=== PATIENT | female | born 1945 | race Caucasian/White ===

== ENCOUNTER 2017-08-26 02:42 | Observation (INO) ==
[2017-08-26 03:16] LABS: Basophils % 0.4 % (0.1-2.0); Eosinophils # 0.1 K/mm3 (0.0-0.4); Hematocrit 40.1 % (37.0-47.0); Hemoglobin 13.6 g/dL (12.2-16.2); Lymphocytes # 2.6 K/mm3 (0.7-4.5); Lymphocytes % 26.5 K/mm3 (10-50); Mean Corpuscular HGB Conc 33.8 g/dL (31.8-35.4); Mean Corpuscular Hemoglobin 32.7 pg (27.0-31.2); Mean Corpuscular Volume 96.8 fl (81-99); Mean Platelet Volume 9.4 fl (7.4-10.4); Monocytes # 0.6 K/mm3 (0.1-1.0); Monocytes % 6.5 % (1.7-9.3); Neutrophils # 6.4 K/mm3 (1.8-7.8); Neutrophils % 65.6 % (37.0-80.0); Platelet Count 290 K/mm3 (142-424); Red Blood Count 4.15 M/mm3 (4.20-5.40); Red Cell Distribution Width 14.1 % (11.5-17.5); White Blood Count 9.8 K/mm3 (4.8-10.8)
[2017-08-26 03:28] LABS: INR 0.94 (0.9-1.1); Prothrombin Time 10.1 seconds (9.4-11.8)
[2017-08-26 03:45] LABS: Albumin/Globulin Ratio 0.7 (1.1-1.8); Anion Gap 18.9 mEq/L (5-15); Bilirubin,Total 0.1 mg/dL (0.2-1.0); Calcium 8.9 mg/dL (8.5-10.1); Globulin 4.4 gm/dl (1.3-3.2); Potassium 3.9 mmoL/L (3.5-5.1); Total Protein,Serum 7.4 gm/dL (6.4-8.2)
[2017-08-26 04:03] LABS: Erythrocyte Sedimentation Rate 99 mm/hr (0-30)
--- NOTE | 2017-08-26 04:04 | Emergency Department Note ---
ED Disposition Clinical Impression: Arterial insufficiency of lower extremity, Renal insufficiency, Tobacco use disorder Disposition: Admitted As Inpatient Condition on Discharge: Serious - Critical Care Critical Care Time: No ( ) Attestation: On 08/26/17, the high probability of a clinically significant, sudden or life threatening deterioration of the following system(s) required my full and direct attention, intervention and personal management. The time I documented below is in addition to time spent performing reported procedures but includes the following listed in this critical care notation. Medical Decision Making - Medical Records Medical records reviewed: Yes: I reviewed the patient's medical records. - Julien Inquiry Pt receiving controlled substance: No Vital Signs: 08/26/17 02:44 08/26/17 04:43 Temperature 98.2 F Temperature Source Oral Pulse Rate [Right Radial] 75 72 Respiratory Rate 16 16 Blood Pressure [Right Arm] 138/58 146/63 Blood Pressure Mean [Right Arm] 84 90 Blood Pressure Source [Right Arm] Automatic Cuff Automatic Cuff Blood Pressure Position [Right Arm] Sitting Supine 02 Sat by Pulse Oximetry 97 95 Oxygen Delivery Method Room Air Room Air - Lab Data Lab results reviewed: Yes: I reviewed the patient's lab results. Lab Results 08/26/17 03:10: WBC 9.8, RBC 4.15 L, Hgb 13.6, Hct 40.1, MCV 96.8, MCH 32.7 H, MCHC 33.8, RDW 14.1, Plt Count 290, MPV 9.4, Neut % (Auto) 65.6, Lymph % (Auto) 26.5, [place] % (Auto) 6.5, Eos % (Auto) 1.0, Baso % (Auto) 0.4, Neut # (Auto) 6.4 , Lymph # (Auto) 2.6, [place] # (Auto) 0.6, Eos # (Auto) 0.1, Baso # (Auto) 0.0, ESR 99 H 08/26/17 03:10: PT 10.1, INR 0.94 08/26/17 03:10: Sodium 135 L, Potassium 3.9, Chloride 100, Carbon Dioxide 20 L, Anion Gap 18.9 H, BUN 57 H, Creatinine 2.53 H, Estimated Creat Clear 17, Estimated GFR 19 L*, Est GFR ( Amer) 22 L, Glucose 269 H, Calcium 8.9, Total Bilirubin 0.1 L, AST 19, ALT 24, Alkaline Phosphatase 158 H, Total Creatine Kinase 185, CK-MB (CK-2) 4.2 H, CK-MB (CK-2) Rel Index 2.3, Troponin I 0.10 H, Total Protein 7.4, Albumin 3.0 L, Globulin 4.4 H, Albumin/Globulin Ratio 0.7 L 08/26/17 03:10: B-Natriuretic Peptide 495 H Result diagrams: 08/26/17 03:10 08/26/17 03:10 Orders (Tests/Meds): ED MEDICATIONS Discontinued Medications Generic Name Dose Route Start Last Admin Trade Name Freq PRN Reason Stop Dose Admin Butorphanol Tartrate 1 mg 08/26/17 05:26 Stadol 1mg/1ml Vial IV 08/26/17 05:27 ONCE ONE Promethazine HCl 12.5 mg 08/26/17 05:26 Phenergan 25mg/Ml 1ml Vial IV 08/26/17 05:27 ONCE ONE Sodium Chloride 25 ml 08/26/17 05:26 Sod Chlor 0.9% 25ml Bag IV 08/26/17 05:27 ONCE ONE ORDERS Category Date Time Status Chest XR AP view [XR chest AP] Stat Exams 08/26/17 03:28 Ordered XR hip LT 2-3V w/pelvis Stat Exams 08/26/17 03:06 Ordered - Radiology Data #1 Image(s): Chest, Hip Image Reviewed: Yes I reviewed the patient's radiology image Preliminary Findings: No Fracture Seen - ECG Data Tracing #1 I reviewed this ECG and interpreted as documented below: Normal Sinus Rhythm: Yes Ischemic changes: non-specific ST-T wave changes General Adult HPI - General Chief complaint: PAIN Stated complaint: pain Time Seen by Provider: 08/26/17 03:00 Mode of Arrival: EMS Limitations: No Limitations Description of Symptoms (Recalled from ER Triage Doc. by RN): Left thigh/hip pain that started last night. Pt was scheduled for a doppler today but came in due to increased pain - History of Present Illness HPI narrative: progressive pain lt lower ext with hx of tob use/diabetes mellitus/crf - pt reports progressive pain lt lower ext over the last few days - pt was seen at [facility] 2 days ago- pt is hospice pt - Onset (ago): day(s) Location: lower extremity Severity: moderate Quality: aching Consistency: constant - Related Data Home Medications Medication Instructions Recorded Confirmed Aspirin [Aspir 81] 81 mg PO DAILY 08/26/17 08/26/17 Clopidogrel Bisulfate [Plavix 75mg 75 mg PO DAILY 08/26/17 08/26/17 Tab] Hyoscyamine Sulfate 0.125 mg PO NEEDED PRN 08/26/17 08/26/17 Isosorbide Mononitrate [Imdur 30mg 30 mg PO DAILY 08/26/17 08/26/17 ER tablet] Metoprolol Tartrate 100 mg PO BID 08/26/17 08/26/17 Nitroglycerin [Nitrostat 0.4mg SL 0.4 mg SL NEEDED PRN 08/26/17 08/26/17 Tablet] Prochlorperazine Maleate 10 mg PO NEEDED PRN 08/26/17 08/26/17 [Compazine 10mg tablet] Torsemide [Demadex] 20 mg PO DAILY 08/26/17 08/26/17 fentaNYL [Fentanyl] 1 each TD WEEKLY 08/26/17 08/26/17 levoFLOXacin [Levaquin 500mg 500 mg PO Q48H 08/26/17 08/26/17 tab] Allergies Allergy/AdvReac Type Severity Reaction Status Date / Time cefazolin [From [facility]] Allergy Verified 08/26/17 02:54 morphine Allergy Verified 08/26/17 02:54 [facility] History I have reviewed the patient's past medical history: Yes Medical History: Reports:: Diabetes Mellitus Type 2 - Social History Alcohol Intake: never - Psychiatric History Expresses thoughts of harming self/others: None Suicide Plan Description: No Plan ROS Obtained: Yes All systems reviewed & no additional complaints - Constitutional Constitutional: Denies fever(s) - Eyes Eyes: Denies change in vision - ENT Ears, Nose, Mouth, and Throat: Denies sore throat - Cardiovascular Cardiovascular: Denies chest pain at rest - Respiratory Respiratory: No chest congestion, No cough - Gastrointestinal Gastrointestingal: Denies: abdominal pain - Musculoskeletal Musculoskeletal: Denies joint pain, Denies joint swelling, Reports radiating pain into limb - Integumentary/Breasts Skin/Breast: Denies rash - Neurologic Neurologic: Denies seizure-like activity Physical Exam - General General appearance: in no apparent distress - Head Head exam: normocephalic - Eye Eye exam: Present: PERRL, EOMI - ENT ENT exam: Present: mucous membranes dry - Neck Neck exam: Present: trachea midline - Respiratory Respiratory exam: Present: other (dec bs bilat). Absent: respiratory distress - Cardiovascular Cardiovascular exam: Present: regular rate, systolic murmur, +S4 - Abdominal Exam Abdominal exam: Present: soft - Expanded Lower Extremity Exam Left Lower leg exam: Present: other (cold with delayed cap refill with no def pulses with doppler ) - Neurological Exam Neurological exam: Present: alert, oriented X3, CN II-XII intact - Psychiatric Psychiatric exam: Present: normal affect - Skin Skin exam: Absent: other (pallor lt lower ext )
--- NOTE | 2017-08-26 07:45 | Pharmacy Consult Notes ---
[facility] Pharmacy VTE Monitoring - Patient Demographics Admission date: 08/26/17 Report Date: 08/26/17 Time: 07:45 Allergies/Adverse Reactions: Patient Allergies cefazolin [From [facility]] Allergy (Verified 08/26/17 02:54) morphine Allergy (Verified 08/26/17 02:54) Height: 1.63 m Weight: 52.617 kg Patient Problems: Current Active Problems Arterial insufficiency of lower extremity (Acute) Renal insufficiency (Acute) Tobacco use disorder (Acute) - VTE Risk Labs: VTE Related Lab Results Hgb 13.6 g/dL (12.2-16.2) 08/26/17 03:10 Hct 40.1 % (37.0-47.0) 08/26/17 03:10 Plt Count 290 K/mm3 (142-424) 08/26/17 03:10 PT 10.1 seconds (9.4-11.8) 08/26/17 03:10 INR 0.94 (0.9-1.1) 08/26/17 03:10 BUN 57 mg/dL (7-18) H 08/26/17 03:10 Creatinine 2.53 mg/dL (0.55-1.02) H 08/26/17 03:10 Estimated Creat Clear 17 mL/min (0-300) 08/26/17 03:10 Was VTE Risk Assessment Performed: Yes VTE Score: 3 VTE Risk Level: Low Risk - Prophylaxis VTE Prophylaxis Ordered?: Yes Types of VTE Prophylaxis: Pharmacological Pharmacologic Type: Heparin - VTE Diagnosis Confirmed Treatment or plan recommended: Continue Current Treatment
--- NOTE | 2017-08-26 08:27 | Consult Report ---
History of Present Illness Consult date: 08/26/17 Requesting physician: Osmel Chappell Chief complaint: Left leg pain Additional Medical History:: 1. CAD A. History of IL's and 2 stents in past with last stent about 2013, , [place], [place] B. Reportedly has reduced LVEF C. History of cardiac arrest in 04/2017 felt related to urosepsis 2. HTN 3. HLD 4. DM, treated for more than 20 years 5. Chronic kidney disease with transient dialysis from April 2017 until June 2017 at which time patient stopped dialysis. She still has dialysis catheter in place. A. History of urosepsis, approximately 2013 and 2016. 6. Currently in hospice due to cardiac history. 7. Tobacco use continued 8. Family history of heart disease 9. Surgeries including cholecystectomy and left shoulder rotator cuff surgery History of present illness: 72-year-old white female admitted through the emergency department last evening for continued left leg pain now with cold extremity. Onset of left leg pain began Tuesday evening at which time the patient was seen in the [facility] emergency department. Due to the leg being warm patient was given pain medication and sent home and scheduled for Doppler evaluation yesterday. Due to recurrent pain with now cool extremity patient was brought to the emergency room for further evaluation. Doppler evaluation of the left leg revealed no pulses in the leg and patient was admitted for further evaluation. Contact was made with Dr. Burleson overnight regarding possible intervention. Long discussion with the daughter and the patient this a.m. regarding possible need for resuming dialysis if abdominal aortogram with lower extremity runoff and angioplasty with stenting is undertaken. Both the daughter and the patient understand the risks and are willing to proceed. EKG shows sinus rhythm with poor R-wave progression anteriorly. No acute ST elevation is noted. Patient's initial troponin is elevated at 0.1. Her home medications include both aspirin and Plavix along with metoprolol. [facility] History Medical History: Reports:: Atrial Fibrillation, Congestive Heart Failure, Diabetes Mellitus Type 2, Hyperlipidemia, Hypertension, Myocardial Infarction Denies:: Cancer, Diabetes Mellitus Type 1, MRSA Other Medical History: Reports: Anemia Other Surgeries: Yes: Cardiac Catheterization, Coronary Stent Amputation: No Fractures: No - *Social History Educational Level: Completed High School Smoking Status: Current every day smoker Tobacco Type: cigarettes Alcohol Intake: never Occupational Status: retired Housing: apartment Household Members: children - Psychiatric History Expresses thoughts of harming self/others: None Suicide Plan Description: No Plan *Family Hx:: Unable to obtain Meds Home Medications Medication Instructions Recorded Confirmed Type Aspirin [Aspir 81] 81 mg PO DAILY 08/26/17 08/26/17 History Clopidogrel Bisulfate [Plavix 75mg 75 mg PO DAILY 08/26/17 08/26/17 History Tab] Hyoscyamine Sulfate 0.125 mg PO NEEDED PRN 08/26/17 08/26/17 History Isosorbide Mononitrate [Imdur 30mg 30 mg PO DAILY 08/26/17 08/26/17 History ER tablet] Metoprolol Tartrate 100 mg PO BID 08/26/17 08/26/17 History Nitroglycerin [Nitrostat 0.4mg SL 0.4 mg SL NEEDED PRN 08/26/17 08/26/17 History Tablet] Prochlorperazine Maleate 10 mg PO NEEDED PRN 08/26/17 08/26/17 History [Compazine 10mg tablet] Torsemide [Demadex] 20 mg PO DAILY 08/26/17 08/26/17 History fentaNYL [Fentanyl] 1 each TD WEEKLY 08/26/17 08/26/17 History levoFLOXacin [Levaquin 500mg 500 mg PO Q48H 08/26/17 08/26/17 History tab] Allergies Allergy/AdvReac Type Severity Reaction Status Date / Time cefazolin [From [facility]] Allergy Verified 08/26/17 02:54 morphine Allergy Verified 08/26/17 02:54 Review of Systems - *Cardiovascular Denies chest pain, Denies shortness of breath - *Respiratory Denies shortness of breath - *Gastrointestinal Denies abdominal pain - *Musculoskeletal Comments: Left leg pain. - *Neurologic Denies seizure-like activity Exam Vital signs and Labs for Last 24 Hours: Temp Pulse Resp BP Pulse Ox 98.3 F 77 14 168/73 95 08/26/17 06:49 08/26/17 06:49 08/26/17 06:49 08/26/17 06:49 08/26/17 06:38 I & O for Last 24 hours: Intake & Output 08/23/17 08/24/17 08/25/17 08/26/17 11:59 11:59 11:59 11:59 Intake Total 0 / 0 Balance 0 / 0 Weight 116 lb - *Routine Neck Exam Absent: JVD, carotid bruit - *Routine Respiratory Exam Present: CTA bilaterally, diminished air movement - *Routine Cardiovascular Exam Present: RRR, murmur. Absent: gallop, rubs - *Routine Abdominal Exam Present: soft. Absent: tenderness - *Routine Extremities Exam Comments: Left leg is cool and pale in color compared with the leg. Distal pulses not palpable bilaterally. Patient has a strong femoral pulse in the right leg and a very weak femoral pulse of the left. Assessment and Plan (1) Arterial insufficiency of lower extremity Current visit: Yes Status: Acute Category: Medical Code(s): I73.9 - Peripheral vascular disease, unspecified (2) CAD (coronary artery disease) Current visit: Yes Status: Acute Category: Medical Code(s): I25.10 - Atherosclerotic heart disease of [place] coronary artery without angina pectoris (3) CHF (congestive heart failure) Current visit: Yes Status: Acute Category: Medical Code(s): I50.9 - Heart failure, unspecified (4) Hospice care Current visit: Yes Status: Acute Category: Medical Code(s): Z51.5 - Encounter for palliative care (5) History of IL (myocardial infarction) Current visit: Yes Status: Chronic Category: Medical Code(s): I25.2 - Old myocardial infarction (6) Hyperlipidemia Current visit: Yes Status: Chronic Category: Medical Code(s): E78.5 - Hyperlipidemia, unspecified (7) Hypertension Current visit: Yes Status: Chronic Category: Medical Code(s): I10 - Essential (primary) hypertension (8) Renal insufficiency Current visit: Yes Status: Chronic Category: Medical Code(s): N28.9 - Disorder of kidney and ureter, unspecified - Assessment and plan all Dx Assessment and Plan for all problems:: 1. Recommendation for abdominal aortogram with lower extremity runoff was made to the patient and her daughter. Risk of need for possible dialysis was discussed with both the daughter and the patient, and they agreed to proceed. 2. Continue aspirin, Plavix and metoprolol. 3. Further recommendations to follow. 4. Will obtain an echo to evaluate LVEF in patient with known ischemic cardiomyopathy, abnormal EKG and elevated troponin.
--- NOTE | 2017-08-26 08:33 | History & Physical Report ---
*Admission Date: 08/26/17 <Leatha Hardy 08/26/17 08:38> *Chief complaint: left leg pain <Leatha Hardy 08/26/17 08:38> *History of present illness: Ms. Mann is a 72-year-old female with a history of diabetes, ND with stents , hypertension, hyperlipidemia, and history of urosepsis. The patient had urosepsis and coded in April 2017. After this, she had to be placed on dialysis due to renal failure. She only did dialysis from April to June at which time she stopped dialysis. She states she did not want to travel to have it done. She has done well since being off of dialysis. She is currently a hospice patient due to her cardiac issues. She began having left leg pain on Tuesday and went to the [facility] emergency room. She was given pain medication and sent home and scheduled for a Doppler of the left leg. Her pain became worse and she presented to the emergency room at [facility] last night. The Doppler was used and no pulse was found in the left leg. Her leg is cold and slightly cost control specialist in color than the other leg. She was admitted for cardiology consult. Cardiology has seen the patient this a.m. <Leatha Hardy 08/26/17 08:50> [facility] History Medical History: Reports:: Atrial Fibrillation, Congestive Heart Failure, Diabetes Mellitus Type 2, Hyperlipidemia, Hypertension, Myocardial Infarction Denies:: Cancer, Cerebrovascular Accident, Diabetes Mellitus Type 1, MRSA < Leatha Hardy 08/26/17 08:38> Other Medical History: Reports: Anemia <Leatha Hardy 08/26/17 08:38> Laterality Cases: Left: Arthroscopy Shoulder <Leatha Hardy 08/26/17 08:50> Other Surgeries: Yes: Cardiac Catheterization, Coronary Stent <Leatha Hardy 08/26/17 08:38> Amputation: No <Leatha Hardy 08/26/17 08:38> Fractures: No <Leatha Hardy 08/26/17 08:38> Comment: Cholecystectomy <Leatha Hardy 08/26/17 08:38> - *Social History Educational Level: Completed High School <Leatha Hardy 08/26/17 08:38> Smoking Status: Current every day smoker <Leatha Hardy 08/26/17 08:38> Tobacco Type: cigarettes <Leatha Hardy 08/26/17 08:38> Alcohol Intake: never <Leatha Hardy 08/26/17 08:38> Occupational Status: retired <Leatha Hardy 08/26/17 08:38> Housing: apartment <Leatha Hardy 08/26/17 08:38> Household Members: children <Leatha Hardy 08/26/17 08:38> - Psychiatric History Expresses thoughts of harming self/others: None <Leatha Hardy 08/26/17 08: 38> Suicide Plan Description: No Plan <Leatha Hardy 08/26/17 08:38> *Family Hx:: Heart Attack, Hyperlipidemia, Hypertension, Kidney Disease < Leatha Hardy 08/26/17 08:38> Review of Systems - Constitutional Reports weakness, Reports weight loss, Denies chills <Leatha Hardy 08:38> - Eyes Denies blurry vision, Denies double vision <Leatha Hardy 08/26/17 08:38> - ENT Reports nasal congestion, Denies sore throat <Leatha Hardy 08/26/17 08:38> - *Cardiovascular Denies chest pain <Leatha Hardy 08/26/17 08:38> - *Respiratory Denies cough, Denies shortness of breath <Leatha Hardy 08/26/17 08:38> - *Gastrointestinal Denies abdominal pain, Denies loose stools, Denies nausea, Denies vomiting < Leatha Hardy 08/26/17 08:38> - *Genitourinary Denies difficulty urinating, Denies painful urination <Leatha Hardy 08:38> - *Musculoskeletal Denies joint pain, Denies joint swelling <Leatha Hardy 08/26/17 08:38> Comments: left leg pain <Leatha Hardy 08/26/17 08:38> - *Neurologic Reports weakness, Denies dizziness, Denies headache(s), Denies seizure-like activity <Leatha Hardy 08/26/17 08:38> Meds Home Medications Medication Instructions Recorded Confirmed Type Aspirin [Aspir 81] 81 mg PO DAILY 08/26/17 08/26/17 History Clopidogrel Bisulfate [Plavix 75mg 75 mg PO DAILY 08/26/17 08/26/17 History Tab] Hyoscyamine Sulfate 0.125 mg PO NEEDED PRN 08/26/17 08/26/17 History Isosorbide Mononitrate [Imdur 30mg 30 mg PO DAILY 08/26/17 08/26/17 History ER tablet] Metoprolol Tartrate 100 mg PO BID 08/26/17 08/26/17 History Nitroglycerin [Nitrostat 0.4mg SL 0.4 mg SL NEEDED PRN 08/26/17 08/26/17 History Tablet] Prochlorperazine Maleate 10 mg PO NEEDED PRN 08/26/17 08/26/17 History [Compazine 10mg tablet] Torsemide [Demadex] 20 mg PO DAILY 08/26/17 08/26/17 History fentaNYL [Fentanyl] 1 each TD WEEKLY 08/26/17 08/26/17 History levoFLOXacin [Levaquin 500mg 500 mg PO Q48H 08/26/17 08/26/17 History tab] <Osmel Chappell - 08/26/17 08:59> Allergies Allergy/AdvReac Type Severity Reaction Status Date / Time cefazolin [From [facility]] Allergy Verified 08/26/17 02:54 morphine Allergy Verified 08/26/17 02:54 <Osmel Chappell - 08/26/17 08:59> Exam Vital signs and Labs for Last 24 Hours: Temp Pulse Resp BP Pulse Ox 98.3 F 77 14 168/73 95 08/26/17 06:49 08/26/17 06:49 08/26/17 06:49 08/26/17 06:49 08/26/17 06:38 <Osmel Chappell - 08/26/17 08:59> Temp Pulse Resp BP Pulse Ox 98.3 F 77 14 168/73 95 08/26/17 06:49 08/26/17 06:49 08/26/17 06:49 08/26/17 06:49 08/26/17 06:38 <Leatha Hardy - 08/26/17 08:38> I & O for Last 24 hours: Intake & Output 08/23/17 08/24/17 08/25/17 08/26/17 11:59 11:59 11:59 11:59 Intake Total 0 / 0 Balance 0 / 0 Weight 116 lb <Osmel Chappell - 08/26/17 08:59> Intake & Output 08/23/17 08/24/17 08/25/17 08/26/17 11:59 11:59 11:59 11:59 Intake Total 0 / 0 Balance 0 / 0 Weight 116 lb <Leatha Hardy 08/26/17 08:38> - Constitutional no acute distress <Leatha Hardy 08/26/17 08:38> - *Routine HEENT Exam Head: Present: normocephalic, atraumatic <Leatha Hardy 08/26/17 08:38> Eye: Present: EOMI, PERRL <Letaha Hardy 08/26/17 08:38> ENT: Present: mucous membranes dry <Leatha Hardy 08/26/17 08:38> - *Routine Neck Exam Present: supple, full ROM <Leatha Hardy 08/26/17 08:38> - *Routine Respiratory Exam Present: decreased breath sounds, CTA bilaterally <Leatha Hardy 08/26/17 08 :38> - *Routine Cardiovascular Exam Present: RRR <Leatha Hardy 08/26/17 08:38> - *Routine Abdominal Exam Present: soft, normoactive bowel sounds. Absent: tenderness <Leatha Hardy 08/26/17 08:38> - *Routine Extremities Exam Present: edema (trace bilaterally) <Leatha Hardy 08/26/17 08:38> Comments: left leg with pallor and it is tender and cold to the touch, no pulse palpable, right leg with normal color, warm, pulse is found <Leatha Hardy 08/26/17 08:38> H&P: Result - Impressions Hip xray - Moderate osteoarthritic change left hip along with underlying osteopenia and moderate degenerative disc disease lower lumbar spine CXR - Multiple and likely healed fractures right ribs, if there is persistent pain additional right rib films may be helpful for additional evaluation. <Leatha Hardy 08/26/17 08:38> Assessment and Plan (1) Arterial insufficiency of lower extremity Current visit: Yes Status: Acute Category: Medical Code(s): I73.9 - Peripheral vascular disease, unspecified (2) Hypertension Current visit: Yes Status: Chronic Category: Medical Code(s): I10 - Essential (primary) hypertension (3) Hyperlipidemia Current visit: Yes Status: Chronic Category: Medical Code(s): E78.5 - Hyperlipidemia, unspecified (4) Type 2 diabetes mellitus Current visit: Yes Status: Chronic Category: Medical Code(s): E11.9 - Type 2 diabetes mellitus without complications (5) Renal insufficiency Current visit: Yes Status: Chronic Category: Medical Code(s): N28.9 - Disorder of kidney and ureter, unspecified (6) Tobacco use disorder Current visit: Yes Status: Chronic Category: Medical Code(s): F17.200 - Nicotine dependence, unspecified, uncomplicated (7) History of ND (myocardial infarction) Current visit: Yes Status: Chronic Category: Medical Code(s): I25.2 - Old myocardial infarction (8) CAD (coronary artery disease) Current visit: Yes Status: Acute Category: Medical Code(s): I25.10 - Atherosclerotic heart disease of [place] coronary artery without angina pectoris (9) CHF (congestive heart failure) Current visit: Yes Status: Acute Category: Medical Code(s): I50.9 - Heart failure, unspecified (10) Hospice care Current visit: Yes Status: Acute Category: Medical Code(s): Z51.5 - Encounter for palliative care <Osmel Chappell - 08/26/17 08:59> (1) Arterial insufficiency of lower extremity Current visit: Yes Status: Acute Category: Medical Code(s): I73.9 - Peripheral vascular disease, unspecified (2) Hypertension Current visit: Yes Status: Chronic Category: Medical Code(s): I10 - Essential (primary) hypertension (3) Hyperlipidemia Current visit: Yes Status: Chronic Category: Medical Code(s): E78.5 - Hyperlipidemia, unspecified (4) Type 2 diabetes mellitus Current visit: Yes Status: Chronic Category: Medical Code(s): E11.9 - Type 2 diabetes mellitus without complications (5) Renal insufficiency Current visit: Yes Status: Chronic Category: Medical Code(s): N28.9 - Disorder of kidney and ureter, unspecified (6) Tobacco use disorder Current visit: Yes Status: Chronic Category: Medical Code(s): F17.200 - Nicotine dependence, unspecified, uncomplicated (7) History of ND (myocardial infarction) Current visit: Yes Status: Chronic Category: Medical Code(s): I25.2 - Old myocardial infarction <Leatha Hardy - 08/26/17 08:45> - Assessment and plan all Dx Assessment and Plan for all problems:: Saw patient, she is a Hospice cardiac patient with what appears to be threatening left leg limb ischemia. She was on dialysis but has stopped treatment. Cardiology to attempt percutaneous based treatment of left leg. Plan of care discussed with patient and her daughter. <Osmel Chappell - 08/26/17 08:59> Cardiology will do an abdominal aortogram with lower extremity runoff and possible angioplasty with stenting. Patient is aware she may have to go back on dialysis. <Leatha Hardy - 08/26/17 08:50>
[2017-08-26 13:06] LABS: Microscopic, Urine URINE MICROSCOPIC (MICROSCOPIC)
--- NOTE | 2017-08-26 13:25 | Pharmacy Consult Notes ---
[facility] Pharmacy Heparin Dosing - Demographic Data Admission date:: 08/26/17 Date: 08/26/17 Time: 13:22 Allergies/Adverse Reactions: Allergies Allergy/AdvReac Type Severity Reaction Status Date / Time cefazolin [From Ancef] Allergy Verified 08/26/17 02:54 morphine Allergy Verified 08/26/17 02:54 Height: 1.63 m Weight: 52.6 kg - Indication Medication therapy:: Heparin Patient Problems: Current Active Problems (This Medical Record has been edited. Action required.) Arterial insufficiency of lower extremity (Acute) Renal insufficiency (Chronic) Tobacco use disorder (Chronic) Hypertension (Chronic) Hyperlipidemia (Chronic) Type 2 diabetes mellitus (Chronic) History of IA (myocardial infarction) (Chronic) CAD (coronary artery disease) (Acute) CHF (congestive heart failure) (Acute) Hospice care (Acute) CVA?: No Bleeding problem?: No Kidney disease?: Yes IA?: No Desired PTT range:: 60-80 seconds - Labs Anticoagulation Lab Results:: 46.4 - Monitoring Dose Monitor 1 Date: 08/26/17 Time: 13:25 PTT Result:: 46.4 Infusion Rate:: 3000 UNIT BOLUS GIVEN IN ER 17 ML/HR (850 UNITS/HR) Comment:: [id number] HEPARIN DRIP STOPPED IN CABIN SUPERVISOR - Core Measures Is INR > or = 2 at discharge?: No Most Recent Labs:: Laboratory Results - last 24 hr 08/26/17 08:35: APTT 46.4 H If INR was < than 2.0 why was therapy stopped?: HEPARIN DRIP STOPPED IN CABIN SUPERVISOR Were Heparin and Warfarin started on the same day?: No If not, why?: NOT INDICATED FOR PATIENT
[2017-08-26 13:36] LABS: Appearance,Urine SL CLOUDY (Clear); Bilirubin,Urine Negative (Negative); Blood, Urine 1+ (Negative); Color,Urine YELLOW (Yellow); Glucose,Urine (UA) 1+ (Negative); Ketones,Urine Negative (Negative); Leukocyte Esterase,Urine Negative (Negative); Protein,Urine 2+ (Negative); Urobilinogen,Urine 0.2 EU/dl (0.2)
[2017-08-26 13:54] LABS: WBC,Urine Occasional #/hpf (0-3)
[2017-08-26 13:55] LABS: Amorphous Sediment,Urine 2+ /lpf; Bacteria,Urine 1+ /lpf
--- NOTE | 2017-08-27 08:19 | Progress Note ---
<Leatha Hardy - Last Filed: 08/27/17 08:16> Internal Medicine - PN: Subj *Date: 08/27/17 *Time: 08:16 Interval history: The patient is lethargic this am. When she does wake up she states that her leg pain is better but still hurts. Denies any other pain. Exam Vital signs and Labs for Last 24 Hours: Temp Pulse Resp BP Pulse Ox 97.6 F 96 H 18 160/74 96 08/27/17 08:03 08/27/17 08:03 08/27/17 08:03 08/27/17 08:03 08/27/17 08:03 Laboratory Results - last 24 hr 08/26/17 08:35: APTT 46.4 H 08/26/17 11:20: Activated Clotting Time 267 H* 08/26/17 12:00: Activated Clotting Time 144 H D 08/26/17 12:20: Urine Color Yellow, Urine Appearance Sl cloudy, Urine pH 6.0, Ur Specific Ten Sleep 1.020, Urine Protein 2+, Urine Glucose (UA) 1+, Urine Ketones Negative, Urine Blood 1+, Urine Nitrate Negative, Urine Bilirubin Negative, Urine Urobilinogen 0.2, Ur Leukocyte Esterase Negative, Urine RBC None , Urine WBC Occasional, Ur Squamous Epith Cells 10-20, Amorphous Sediment 2+, Urine Bacteria 1+ 08/26/17 16:44: POC Glucose 197 08/26/17 22:12: POC Glucose 243 08/27/17 06:39: POC Glucose 312 I & O for Last 24 hours: Intake & Output 08/24/17 08/25/17 08/26/17 08/27/17 11:59 11:59 11:59 11:59 Intake Total 0 / 0 1479 / 1479 Output Total 2600 / 2600 Balance 0 / 0 -1121 / -1121 Weight 116 lb 115 lb 15.41 oz Radiology Reports for the Last 24 Hours: Aortogram 1. 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 Successful revascularization of the left common femoral artery and left superficial femoral artery 100% occlusion reduced to 0% with 2 bare-metal self- expanding stents - Constitutional Comments: lethargic - *Routine Respiratory Exam Present: rhonchi - *Routine Cardiovascular Exam Present: RRR - *Routine Abdominal Exam Present: soft, normoactive bowel sounds. Absent: tenderness - *Routine Extremities Exam Absent: edema Comments: LLE is now warm to the touch and a pretibial pulse is palpable Assessment and Plan (1) Arterial insufficiency of lower extremity Current visit: Yes Status: Acute Category: Medical Code(s): I73.9 - Peripheral vascular disease, unspecified (2) CAD (coronary artery disease) Current visit: Yes Status: Acute Category: Medical Code(s): I25.10 - Atherosclerotic heart disease of [place] coronary artery without angina pectoris (3) CHF (congestive heart failure) Current visit: Yes Status: Acute Category: Medical Code(s): I50.9 - Heart failure, unspecified (4) Hospice care Current visit: Yes Status: Acute Category: Medical Code(s): Z51.5 - Encounter for palliative care (5) History of MD (myocardial infarction) Current visit: Yes Status: Chronic Category: Medical Code(s): I25.2 - Old myocardial infarction (6) Hyperlipidemia Current visit: Yes Status: Chronic Category: Medical Code(s): E78.5 - Hyperlipidemia, unspecified (7) Hypertension Current visit: Yes Status: Chronic Category: Medical Code(s): I10 - Essential (primary) hypertension (8) Renal insufficiency Current visit: Yes Status: Chronic Category: Medical Code(s): N28.9 - Disorder of kidney and ureter, unspecified - Assessment and plan all Dx Assessment and Plan for all problems:: Cardiology procedure reviewed. Patient is to remain on aspirin and Plavix. We will get labs this morning to check renal function. <Osmel Chappell - Last Filed: 08/27/17 10:43> Internal Medicine - PN: Subj *Date: 08/27/17 *Time: 10:41 Exam Vital signs and Labs for Last 24 Hours: Temp Pulse Resp BP Pulse Ox 97.6 F 96 H 18 160/74 96 08/27/17 08:03 08/27/17 08:03 08/27/17 08:03 08/27/17 08:03 08/27/17 08:03 Laboratory Results - last 24 hr 08/26/17 11:20: Activated Clotting Time 267 H* 08/26/17 12:00: Activated Clotting Time 144 H D 08/26/17 12:20: Urine Color Yellow, Urine Appearance Sl cloudy, Urine pH 6.0, Ur Specific [place] 1.020, Urine Protein 2+, Urine Glucose (UA) 1+, Urine Ketones Negative, Urine Blood 1+, Urine Nitrate Negative, Urine Bilirubin Negative, Urine Urobilinogen 0.2, Ur Leukocyte Esterase Negative, Urine RBC None , Urine WBC Occasional, Ur Squamous Epith Cells 10-20, Amorphous Sediment 2+, Urine Bacteria 1+ 08/26/17 16:44: POC Glucose 197 08/26/17 22:12: POC Glucose 243 08/27/17 06:39: POC Glucose 312 08/27/17 08:51: WBC 9.1, RBC 3.66 L, Hgb 11.8 L, Hct 34.9 L, MCV 95.4, MCH 32.1 H, MCHC 33.7, RDW 14.1, Plt Count 190 D, MPV 10.0, Neut % (Auto) 70.0, Lymph % (Auto) 21.2, Bond % (Auto) 6.2, Eos % (Auto) 2.2, Baso % (Auto) 0.4, Neut # ( Auto) 6.4, Lymph # (Auto) 1.9, Bond # (Auto) 0.6, Eos # (Auto) 0.2, Baso # (Auto ) 0.0 08/27/17 08:51: Sodium 144, Potassium 3.0 L, Chloride 113 H, Carbon Dioxide 19 L , Anion Gap 15.0, BUN 42 H D, Creatinine 1.78 H D, Estimated Creat Clear 23, Estimated GFR 28 L, Est GFR ( Amer) 34 L D, Glucose 175 H, Calcium 8.8, Total Bilirubin 0.1 L, AST 17, ALT 20, Alkaline Phosphatase 137 H, Total Protein 5.8 L, Albumin 2.2 L D, Globulin 3.6 H, Albumin/Globulin Ratio 0.6 L I & O for Last 24 hours: Intake & Output 08/24/17 08/25/17 08/26/17 08/27/17 11:59 11:59 11:59 11:59 Intake Total 0 / 0 1479 / 1479 Output Total 2600 / 2600 Balance 0 / 0 -1121 / -1121 Weight 116 lb 115 lb 15.41 oz Assessment and Plan (1) Arterial insufficiency of lower extremity Current visit: Yes Status: Acute Category: Medical Code(s): I73.9 - Peripheral vascular disease, unspecified (2) CAD (coronary artery disease) Current visit: Yes Status: Acute Category: Medical Code(s): I25.10 - Atherosclerotic heart disease of [place] coronary artery without angina pectoris (3) CHF (congestive heart failure) Current visit: Yes Status: Acute Category: Medical Code(s): I50.9 - Heart failure, unspecified (4) Hospice care Current visit: Yes Status: Acute Category: Medical Code(s): Z51.5 - Encounter for palliative care (5) History of MD (myocardial infarction) Current visit: Yes Status: Chronic Category: Medical Code(s): I25.2 - Old myocardial infarction (6) Hyperlipidemia Current visit: Yes Status: Chronic Category: Medical Code(s): E78.5 - Hyperlipidemia, unspecified (7) Hypertension Current visit: Yes Status: Chronic Category: Medical Code(s): I10 - Essential (primary) hypertension (8) Renal insufficiency Current visit: Yes Status: Chronic Category: Medical Code(s): N28.9 - Disorder of kidney and ureter, unspecified (9) Hypokalemia Current visit: Yes Status: Acute Category: Medical Code(s): E87.6 - Hypokalemia - Assessment and plan all Dx Assessment and Plan for all problems:: Saw patient this morning, she is alert and conversant now. Labs reviewed, will replace potassium now, remove Haney catheter and ambulate.
[2017-08-27 09:09] LABS: Basophils % 0.4 % (0.1-2.0); Eosinophils # 0.2 K/mm3 (0.0-0.4); Eosinophils % 2.2 % (0.1-12.0); Hematocrit 34.9 % (37.0-47.0); Hemoglobin 11.8 g/dL (12.2-16.2); Lymphocytes # 1.9 K/mm3 (0.7-4.5); Lymphocytes % 21.2 K/mm3 (10-50); Mean Corpuscular HGB Conc 33.7 g/dL (31.8-35.4); Mean Corpuscular Hemoglobin 32.1 pg (27.0-31.2); Mean Corpuscular Volume 95.4 fl (81-99); Monocytes # 0.6 K/mm3 (0.1-1.0); Monocytes % 6.2 % (1.7-9.3); Neutrophils # 6.4 K/mm3 (1.8-7.8); Platelet Count 190 K/mm3 (142-424); Red Blood Count 3.66 M/mm3 (4.20-5.40); Red Cell Distribution Width 14.1 % (11.5-17.5); White Blood Count 9.1 K/mm3 (4.8-10.8)
[2017-08-27 09:25] LABS: Albumin Level 2.2 gm/dL (3.4-5.0); Albumin/Globulin Ratio 0.6 (1.1-1.8); Bilirubin,Total 0.1 mg/dL (0.2-1.0); Calcium 8.8 mg/dL (8.5-10.1); Globulin 3.6 gm/dl (1.3-3.2); Total Protein,Serum 5.8 gm/dL (6.4-8.2)
[2017-08-28 07:16] LABS: Basophils % 0.3 % (0.1-2.0); Eosinophils # 0.2 K/mm3 (0.0-0.4); Eosinophils % 2.3 % (0.1-12.0); Hematocrit 33.1 % (37.0-47.0); Hemoglobin 11.3 g/dL (12.2-16.2); Lymphocytes % 21.2 K/mm3 (10-50); Mean Corpuscular HGB Conc 34.1 g/dL (31.8-35.4); Mean Corpuscular Volume 96.9 fl (81-99); Mean Platelet Volume 9.8 fl (7.4-10.4); Monocytes # 0.5 K/mm3 (0.1-1.0); Monocytes % 5.7 % (1.7-9.3); Neutrophils # 6.5 K/mm3 (1.8-7.8); Neutrophils % 70.6 % (37.0-80.0); Platelet Count 174 K/mm3 (142-424); Red Blood Count 3.42 M/mm3 (4.20-5.40); Red Cell Distribution Width 14.2 % (11.5-17.5); White Blood Count 9.3 K/mm3 (4.8-10.8)
[2017-08-28 07:25] LABS: Anion Gap 15.8 mEq/L (5-15); Potassium 3.8 mmoL/L (3.5-5.1)
--- NOTE | 2017-08-28 08:05 | Cardiology Report ---
PROCEDURE: 2-D M-mode and color Doppler study INDICATIONS FOR THE TEST: Chest pain COPD Heart Murmur Tobacco Smoking+ Palpitations Fatigue Syncope Edema Hypertension+Diabetes Mellitus+ Rheumatic Fever SOB RIVERA Obesity Hyperlipidemia+ Family History HD Additional History NE, STENTS, CARDIAC ARREST 2017, AFIB PATIENT INFORMATION HEIGHT: 64 WEIGHT:116 GENDER: Female B/P:168/73 2-D/M-MODE INTERPRETATION: 2-D MEASUREMENTS OBSERVED VALUES IN CMS Right Ventricular Dimension (RVDd) 1.4 Interventricular Septum (Thickness)(IVsd) 1.8 Left Ventricular Internal Dimensions(LVIDd) 3.9 Left Ventricular Posterior Wall (Thickness)(LVPWd) 1.5 Aortic Root 3.4 Aortic Cusp Separation 1.9 Left Atrial Dimensions (LAD) 3.8 2D 1. Left atrium is mildly enlarged, left ventricle is normal size, there is moderate concentric left ventricular hypertrophy, visually estimated ejection fraction approximately 45-50%, there appears to be moderate hypokinesis involving the apex. 2. The right atrium and right ventricle are normal size and contractility. 3. The aortic valve is thickened and calcified leaflet continue to display mobility. 4. The mitral and tricuspid valve leaflets are minimally thickened. 5. The pulmonic valve is poorly visualized. 6. No significant pericardial effusion noted. DOPPLER INTERROGATION: Doppler interrogation of the aortic, mitral and tricuspid valvular presence of trace aortic, mild mitral and tricuspid regurgitation, tricuspid regurgitant jet velocity insufficient for calculation of the right ventricular systolic pressure, diastolic parameters are inconclusive. CONCLUSION: 1. Mildly enlarged left atrium, normal left ventricular size, moderate concentric left ventricular hypertrophy, visually estimated ejection fraction 45-50% with segmental wall motion abnormality described above. 2. Trace aortic, mild mitral and tricuspid regurgitation 3. No significant pericardial effusion noted.
--- NOTE | 2017-08-28 09:39 | Progress Note ---
Internal Medicine - PN: Subj *Date: 08/28/17 *Time: 09:36 Interval history: Patient did well yesterday, she was able to ambulate in the [place] with a walker and is tolerating diet. Exam Vital signs and Labs for Last 24 Hours: Temp Pulse Resp BP Pulse Ox 98.7 F 102 H 18 132/73 98 08/28/17 08:00 08/28/17 08:00 08/28/17 08:00 08/28/17 08:00 08/28/17 08:00 Laboratory Results - last 24 hr 08/27/17 11:16: POC Glucose 265 08/27/17 16:20: POC Glucose 303 08/27/17 21:41: POC Glucose 212 08/28/17 06:13: POC Glucose 213 08/28/17 06:30: WBC 9.3, RBC 3.42 L, Hgb 11.3 L, Hct 33.1 L, MCV 96.9, MCH 33.0 H, MCHC 34.1, RDW 14.2, Plt Count 174, MPV 9.8, Neut % (Auto) 70.6, Lymph % ( Auto) 21.2, Lucas % (Auto) 5.7, Eos % (Auto) 2.3, Baso % (Auto) 0.3, Neut # (Auto ) 6.5, Lymph # (Auto) 2.0, Lucas # (Auto) 0.5, Eos # (Auto) 0.2, Baso # (Auto) 0.0 08/28/17 06:30: Sodium 143, Potassium 3.8 D, Chloride 113 H, Carbon Dioxide 18 L, Anion Gap 15.8 H, BUN 38 H, Creatinine 1.57 H, Estimated Creat Clear 26, Estimated GFR 32 L, Est GFR ( Amer) 39 L, Glucose 207 H Vital Signs Temp Pulse Resp BP Pulse Ox 08/28/17 08:00 98.7 F 102 H 18 132/73 98 08/28/17 04:00 98.4 F 102 H 19 137/72 98 08/28/17 03:33 91 L 08/28/17 01:06 98.6 F 94 H 20 156/80 08/27/17 20:00 98.6 F 63 20 156/74 98 08/27/17 15:51 98.1 F 99 H 18 125/77 98 08/27/17 11:55 97.7 F 104 H 18 165/74 97 Intake and Output 08/27/17 08/28/17 08/28/17 19:59 03:59 11:59 Intake Total 1042 / 1042 240 / 240 120 / 120 Balance 1042 / 1042 240 / 240 120 / 120 Intake: Intake, Oral Amount 240 / 240 240 / 240 120 / 120 Intake, Total IV Amount 802 / 802 0.9 % Sodium Chloride 1,000 ml 702 / 702 @ 25 mls/hr IV .Q25H NEFTALI Rx#: [id number] KCl 20mEq/100ml 100 ml @ 50 mls 100 / 100 /hr IV ONCE ONE Rx#:[id number] Other: Number of Voids 2 1 1 Number of Unmeasured Voids 1 1 Number of Urine Attends/Diapers 1 1 Number of Bowel Movements 0 0 I & O for Last 24 hours: Intake & Output 08/25/17 08/26/17 08/27/17 08/28/17 11:59 11:59 11:59 11:59 Intake Total 0 / 0 1479 / 1479 1402 / 1402 Output Total 3000 / 3000 Balance 0 / 0 -1521 / -1521 1402 / 1402 Weight 116 lb 115 lb 15.41 oz - Constitutional no acute distress - *Routine HEENT Exam ENT: Present: mucous membranes moist - *Routine Extremities Exam Present: pulses intact. Absent: cyanosis, clubbing, edema Assessment and Plan (1) Arterial insufficiency of lower extremity Current visit: Yes Status: Acute Category: Medical Code(s): I73.9 - Peripheral vascular disease, unspecified (2) CAD (coronary artery disease) Current visit: Yes Status: Acute Category: Medical Code(s): I25.10 - Atherosclerotic heart disease of [place] coronary artery without angina pectoris (3) CHF (congestive heart failure) Current visit: Yes Status: Acute Category: Medical Code(s): I50.9 - Heart failure, unspecified (4) Hospice care Current visit: Yes Status: Acute Category: Medical Code(s): Z51.5 - Encounter for palliative care (5) History of [place] (myocardial infarction) Current visit: Yes Status: Chronic Category: Medical Code(s): I25.2 - Old myocardial infarction (6) Hyperlipidemia Current visit: Yes Status: Chronic Category: Medical Code(s): E78.5 - Hyperlipidemia, unspecified (7) Hypertension Current visit: Yes Status: Chronic Category: Medical Code(s): I10 - Essential (primary) hypertension (8) Renal insufficiency Current visit: Yes Status: Chronic Category: Medical Code(s): N28.9 - Disorder of kidney and ureter, unspecified (9) Hypokalemia Current visit: Yes Status: Resolved Category: Medical Code(s): E87.6 - Hypokalemia - Assessment and plan all Dx Assessment and Plan for all problems:: Patient doing well, OK to discharge today. Will resume all home meds, no new meds at time of discharge. Follow up with Dr. Burleson in [address] Charo Zee in 2 weeks.
--- NOTE | 2017-08-29 22:43 | Discharge Summary ---
General - General Admission date: 08/26/17 Discharge date: 08/28/17 HPI HPI: Ms. Mann is a 72-year-old female with a history of diabetes, DC with stents , hypertension, hyperlipidemia, and history of urosepsis. The patient had urosepsis and coded in April 2017. After this, she had to be placed on dialysis due to renal failure. She only did dialysis from April to June at which time she stopped dialysis. She states she did not want to travel to have it done. She has done well since being off of dialysis. She is currently a hospice patient due to her cardiac issues. She began having left leg pain on Tuesday and went to the [facility] emergency room. She was given pain medication and sent home and scheduled for a Doppler of the left leg. Her pain became worse and she presented to the emergency room at [facility] last night. The Doppler was used and no pulse was found in the left leg. Her leg is cold and slightly station superintendent in color than the other leg. She was admitted for cardiology consult. Cardiology has seen the patient this a.m. Hospital Course Hospital Course: Cardiology saw the patient for what appeared to be threatening left leg limb ischemia. They wanted to do an abdominal aortogram with lower extremity runoff and possible angioplasty with stenting. The patient was aware she may have to go back on dialysis and was in agreement to the procedure. She had this done on 08/26/17 and they found acute on chronic occlusion of the left common femoral artery and left superficial femoral artery. There was successful revascularization of the left common femoral artery and left superficial femoral artery 100% occlusion reduced to 0% with 2 bare-metal self-expanding stents. She tolerated the procedure well and was to remain of ASA and plavix. She had an echo as well showing an EF of 45-50%. Her potassium was replaced and her ballard was removed. she was able to ambulate in the [place] with a walker and was tolerating her diet. Her renal function was stable. She was stable to be discharged. She will resume all home meds and follow up with Dr. Burleson in [address] Charo Zee in 2 weeks. Objective Vital signs: Temp Pulse Resp BP Pulse Ox 98.7 F 102 H 18 132/73 98 08/28/17 08:00 08/28/17 08:00 08/28/17 08:00 08/28/17 08:00 08/28/17 08:00 Narrative: - Constitutional no acute distress - *Routine HEENT Exam Head: Present: normocephalic, atraumatic Eye: Present: EOMI, PERRL ENT: Present: mucous membranes dry - *Routine Neck Exam Present: supple, full ROM - *Routine Respiratory Exam Present: decreased breath sounds, CTA bilaterally - *Routine Cardiovascular Exam Present: RRR - *Routine Abdominal Exam Present: soft, normoactive bowel sounds. Absent: tenderness - *Routine Extremities Exam Present: edema (trace bilaterally) Comments: left leg with pallor and it is tender and cold to the touch, no pulse palpable, right leg with normal color, warm, pulse is found DS: Diagnosis - Discharge Diagnosis (1) Arterial insufficiency of lower extremity Status: Acute (2) CAD (coronary artery disease) Status: Acute (3) CHF (congestive heart failure) Status: Acute (4) Hospice care Status: Acute (5) History of DC (myocardial infarction) Status: Chronic (6) Hyperlipidemia Status: Chronic (7) Hypertension Status: Chronic (8) Renal insufficiency Status: Chronic (9) Tobacco use disorder Status: Chronic (10) Type 2 diabetes mellitus Status: Chronic (11) Hypokalemia Status: Resolved Discharge Plan - Patient Discharge Instructions ACTIVITY: Continue current activity DIET: continue same diet Additional Instructions: Patient to resume Hospice care. Please also provide take home education about peripheral stent that was placed during the admission. Patient Instructions: Peripheral Artery Disease, DI for Coronary Stenting, DI for Peripheral Vascular (Arterial) Disease - Follow up Plan Follow up with: Charo Zee [Referring] - 2 weeks Archie Burleson MD [Staff Physician] - 09/02/17 Disposition: Home, [facility] Medications: Home Medications Medication Instructions Recorded Confirmed Type Aspirin [Aspir 81] 81 mg PO DAILY 08/26/17 08/26/17 History Clopidogrel Bisulfate [Plavix 75mg 75 mg PO DAILY 08/26/17 08/26/17 History Tab] Hyoscyamine Sulfate 0.125 mg PO NEEDED PRN 08/26/17 08/26/17 History Isosorbide Mononitrate [Imdur 30mg 30 mg PO DAILY 08/26/17 08/26/17 History ER tablet] Metoprolol Tartrate 100 mg PO BID 08/26/17 08/26/17 History Nitroglycerin [Nitrostat 0.4mg SL 0.4 mg SL NEEDED PRN 08/26/17 08/26/17 History Tablet] Prochlorperazine Maleate 10 mg PO NEEDED PRN 08/26/17 08/26/17 History [Compazine 10mg tablet] Torsemide [Demadex] 20 mg PO DAILY 08/26/17 08/26/17 History fentaNYL [Fentanyl] 1 each TD WEEKLY 08/26/17 08/26/17 History Prescriptions/Medication Reconciliation: Continue Isosorbide Mononitrate [Imdur 30mg ER tablet] 30 mg PO DAILY Clopidogrel Bisulfate [Plavix 75mg Tab] 75 mg PO DAILY Nitroglycerin [Nitrostat 0.4mg SL Tablet] 0.4 mg SL NEEDED PRN PRN Reason: Chest Pain Hyoscyamine Sulfate 0.125 mg PO NEEDED PRN PRN Reason: Secretions Prochlorperazine Maleate [Compazine 10mg tablet] 10 mg PO NEEDED PRN PRN Reason: Nausea Torsemide [Demadex] 20 mg PO DAILY Metoprolol Tartrate 100 mg PO BID Aspirin [Aspir 81] 81 mg PO DAILY fentaNYL [Fentanyl] 1 each TD WEEKLY Discontinued levoFLOXacin [Levaquin 500mg tab] 500 mg PO Q48H
== END 2017-08-28 13:15 | disposition home or self-care (01) ==
LOC: 2ND 02:42 → ER 02:42 → 2ND 06:49
PROVIDERS: ADMIT Family Medicine; ATTEND Family Medicine